=== PATIENT | female | born 1925 | race Caucasian/White ===

== ENCOUNTER → 2016-12-26 | Day surgery (SDC) | payer MEDICARE ==
[~2016-12-26] MED LIST: ASPI81 PO; BUPIVACAINE HCL PF 0.25% 30 ML VIAL ONE; FURO20 PO; GABA100C4 PO; LACTATED RINGER'S 1000 ML INJ 1,000 ML ONE; LEVO88TA21 PO; METO25 PO; PROPOFOL 200 MG/20 ML AMP IV ONE; ZOCO80TA PO; ceFAZolin 2 GM PREMIX 50 ML ONE
--- NOTE | 2016-12-30 09:14 | MP ---
cc: ALFONSO BAIRD DPM DATE OF SURGERY 12/26/2016 PREOPERATIVE DIAGNOSIS Left fifth digit hammertoe. POSTOPERATIVE DIAGNOSIS Left fifth digit hammertoe. PROCEDURE PERFORMED Left fifth digit PIPJ arthroplasty with flexor tenotomy. SPECIMEN None. ESTIMATED BLOOD LOSS Less than 30 mL. COMPLICATIONS None. ANESTHESIA TIVA with local, 10 cc of 0.25% Marcaine plain. TOURNIQUET TIME 13 minutes at 215 mmHg over the patient's mid-ankle. PLAN OF ACTIVITY PACU, then D/C home once stable per Same-Day Surgery criteria. PROCEDURE IN DETAIL Under mild sedation the patient was brought to the operating room, placed on the operative in the supine position. Following the induction of TIVA general anesthesia, local anesthesia was obtained about the digit utilizing standard block fashion. The patient's left foot was then scrubbed, prepped and draped in the usual aseptic fashion. The foot was elevated, exsanguinated and a well-padded pneumatic tourniquet was inflated to 215 mmHg. An incision was made over the dorsal aspect of the PIPJ which ellipsed out a painful callus. Sharp and blunt dissection was carried down through scar tissue. 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 It was then resected dorsal lateral condyle of the base of the middle phalanx and the head of the proximal phalanx. There is a much improved contour. The wound was flushed with copious amounts of normal saline. Utilizing an 18-gauge needle, the plantar aspect of the PIPJ joint was identified and the flexor tendon was identified and a percutaneous flexor tenotomy was performed inserting the 18-gauge needle and moving it back and forth, an audible sound and then a release took place straightening the toe. The wound was flushed with copious amounts of normal saline. Deep closure took place utilizing Vicryl. The skin was closed utilizing nylon. Upon relieving the tourniquet, there was a prompt hyperemic response to all digits with minimal bleeding. A bulky bandage was placed. The patient was transferred from OR to PACU with all vital signs stable. She is to weight bear to tolerance. She will follow up within 3-5 days. Alfonso Baird DPM DBM/MARY LOU /3:50 PM /8:04 AM
== END | disposition home or self-care (01) ==
LOC: ESDC 12:47
PROVIDERS: ATTEND Podiatrist Foot & Ankle Surgery
DX: M20.42 Other hammer toe(s) (acquired), left foot (principal)
CPT/HCPCS: 01480; 28285; J0690; J3010; J7120

== ENCOUNTER → 2017-07-28 | Day surgery (SDC) | payer MEDICARE ==
[~2017-07-28] MED LIST changes: -BUPIVACAINE HCL PF 0.25% 30 ML VIAL ONE; -LACTATED RINGER'S 1000 ML INJ 1,000 ML ONE; -ceFAZolin 2 GM PREMIX 50 ML ONE
--- NOTE | 2017-07-28 10:09 | GIPROC ---
[facility] [address] [facility], [id number] EGD PROCEDURE REPORT EXAM DATE: 07/28/2017 PATIENT NAME: Jolynn Diaz MR #: [id number] BIRTHDATE: 1925 ATTENDING: James Vasquez MD ORDER #: [id number] PALLET RECTIFIER: Moni Centeno RN STATUS: outpatient INDICATIONS: The patient is a 89 yr old female here for an EGD due to dark stools and melena PROCEDURE PERFORMED: EGD w/ biopsy MEDICATIONS: None, Per Anesthesia, None, and Per Anesthesia. TOPICAL ANESTHETIC: CONSENT: The patient understands the risks and benefits of the procedure and understands that these risks include, but are not limited to: sedation, allergic reaction, infection, perforation and/or bleeding. Alternative means of evaluation and treatment include, among others: physical exam, x-rays, and/or surgical intervention. The patient elects to proceed with this endoscopic procedure. medical equipment was checked for proper function. Hand hygiene and appropriate measures for infection prevention was taken. After the risks, benefits and alternatives of the procedure were thoroughly explained, Informed consent was verified, confirmed and timeout was successfully executed by the treatment team. The patient was anesthetized with topical anesthesia and the EG-[id number] ([id number]) endoscope was introduced through the mouth and advanced to the second portion of the duodenum. Retroflexed views revealed no abnormalities The gastroscope was then slowly withdrawn and removed. STOMACH: There was mild gastritis in the gastric antrum. Multiple biopsies were performed. Gastric fundus diverticulum. The endoscopy was otherwise normal. ADVERSE EVENTS: There were no complications. IMPRESSIONS: 1. There was mild gastritis in the gastric antrum; multiple biopsies were performed 2. Gastric fundus diverticulum 3. Normal endoscopy otherwise 4. Retroflexed views revealed no abnormalities RECOMMENDATIONS: 1. Await biopsy results. Biopsy results will not be ready for 7-10 days. If you don't hear from us in two weeks, call our office for biopsy results. 2. Follow-up: GI clinic 4 week(s) 3. Cbc prior office visit PATIENT CONDITION: stable DISPOSITION: Home REPEAT EXAM: James Vasquez MD eSigned: Jaems Vasquez MD 07/28/2017 10:09 AM cc: [employer] [facility]
== END | disposition home or self-care (01) ==
LOC: ESDC 08:02
PROVIDERS: ATTEND Internal Medicine Gastroenterology
DX: K92.1 Melena (principal); K29.70 Gastritis, unspecified, without bleeding
CPT/HCPCS: 88305; 88312